=== PATIENT | male | born 1965 | race Caucasian/White ===

== ENCOUNTER 2025-06-04 18:33 | Emergency (ER) | payer OTHER ==
[2025-06-04] MEDS ORDERED: TRAZODONE HCL50 MG PO (20:16)
[2025-06-04] MEDS ORDERED: TRAZODONE HCL50 MG (20:16)
[2025-06-04] MEDS ORDERED: NEURONTIN300 MG PO (20:16)
[2025-06-04 20:29] LABS: BASOPHILS 1.3 % (0.2-1.2); EOSINOPHILS 3.3 % (0.8-7.0); LYMPHOCYTES 32.9 % (21.8-53.1); MCH 32.7 PG (25.7-32.2); MCHC 35.2 g/dL (32.3-36.5); MCV 92.7 fL (79.0-92.2); MONOCYTES 11.9 % (5.3-12.2); NEUTROPHILS 50.4 % (34.0-67.9); RBC 4.53 M/uL (4.63-6.08)
[2025-06-04 20:53] LABS: ALT (SGPT) 57 U/L (14-59); AST (SGOT) 96 U/L (15-37); GLOMERULAR FILTRATION RATE,EST 88 mL/min (>60); PROTEIN, TOTAL 7.4 g/dL (6.4-8.2); TSH, 3RD GENERATION 0.846 uIU/mL (0.358-3.740); UREA NITROGEN 2 mg/dL (7-18)
[2025-06-04 20:54] LABS: ALCOHOL, MEDICAL 311 ng/dL (<3)
[2025-06-04] MEDS ORDERED: POTASSIUM CHLORIDE 10 MEQ TABCR PO ONE (21:15)
[2025-06-04] MEDS ORDERED: QUETIAPINE FUMARATE 25 MG TAB PO ONE (21:15)
[2025-06-04] MEDS ORDERED: THIAMINE HCL 100 MG TAB PO ONE (21:15)
[2025-06-04] MEDS ORDERED: MAGNESIUM OXIDE 400 MG TABLET PO ONE (22:00)
[2025-06-04] MEDS ORDERED: LORazepam 2 MG/ML VIAL IV ONE (22:15)
[2025-06-04] MEDS ORDERED: LORazepam 1 MG TAB PO ONE (22:30)
[2025-06-05] MEDS ORDERED: LORazepam 1 MG TAB PO ONE (11:00)
[2025-06-05 12:43] VITALS: BP 149/89
== END 2025-06-05 12:31 | disposition home or self-care (01) ==
LOC: ED 18:33
PROVIDERS: Internal Medicine
DX: F10.129 Alcohol abuse with intoxication, unspecified (principal); Z79.899 Other long term (current) drug therapy; Z88.1 Allergy status to other antibiotic agents
CPT/HCPCS: 36415; 80053; 80307; 83735; 84443; 85025; 99284; A9270; A9270-GY; G0480